=== PATIENT | female | born 1980 | race Two or more races ===

== ENCOUNTER 2018-06-29 13:17 | Emergency (ER) | payer SELFPAY ==
[~2018-06-29] VITALS: Ht 167.6 cm; Wt 90.0 kg
--- NOTE | 2018-06-29 14:28 | NUR ---
LUNCH RN: LAB AT BEDSIDE FOR COLLECTION
--- NOTE | 2018-06-29 14:46 | NUR ---
LUNCH RN: RAMYA BORDEN UA COLLECTED AND SENT TO LAB WITH PT PERMISSION. AWAITING TESTING AND RESULTS AT THIS TIME.
[2018-06-29 14:48] LABS: MICROSCOPIC NOT IND
[2018-06-29 14:50] LABS: CULTURE INDICATED? NO
[2018-06-29 14:59] LABS: BASOPHILS # (AUTO) 0.01 x10^3/uL (0-0.1); BASOPHILS % (AUTO) 0 % (0-1); EOSINOPHILS # (AUTO) 0.08 x10^3/uL (0-0.4); EOSINOPHILS % (AUTO) 1 % (1-7); LYMPHOCYTES # (AUTO) 2.16 x10^3/uL (1-3.4); LYMPHOCYTES % (AUTO) 24 % (22-44); MD NO; MEAN CORPUSCULAR HEMOGLOBIN 21.7 pg (27.0-34.8); MEAN CORPUSCULAR HGB CONC 31.9 g/dL (32.4-35.8); MEAN CORPUSCULAR VOLUME 68.1 fL (80-100); MONOCYTES # (AUTO) 0.71 x10^3/uL (0.2-0.8); MONOCYTES % (AUTO) 8 % (2-9); NEUTROPHILS # (AUTO) 6.23 x10^3/uL (1.8-6.8); NEUTROPHILS % (AUTO) 68 % (42-75); PLATELET COUNT 441 x10^3/uL (130-400); RED BLOOD COUNT 4.46 x10^6/uL (3.82-5.3); RED CELL DISTRIBUTION WIDTH 20.6 % (9.6-15.2)
[2018-06-29] MEDS ORDERED: ACETAMINOPHEN 325 MG TABLET ONE (16:11)
[2018-06-29 16:14] VITALS: BP 114/63
--- NOTE | 2018-06-29 16:15 | NUR ---
DR ORTIZ AT BEDSIDE. ADDITIONAL LABS ORDERED. PT MED NOTED FOR ABD CRAMPING 11/11. RESULTED LABS AND US REVIEWED WITH PT. PT FRIEND AT BEDSIDE FOR INTERPRETING PER PT REQUEST
[2018-06-29] MEDS ORDERED: ACETAMINOPHEN 325 MG TABLET PO ONE (16:30)
--- NOTE | 2018-06-29 17:16 | NUR ---
Patient/Caregiver given discharge instructions and they have confirmed that they understand the instructions. Patient ambulatory with steady gait.
== END 2018-06-29 17:17 | disposition home or self-care (01) ==
LOC: ED 16:45
DX: O20.0 Threatened abortion (principal); Z3A.10 10 weeks gestation of pregnancy
CPT/HCPCS: 36415; 76801; 81003; 84702; 85025; 86901; 99284

== ENCOUNTER 2018-07-02 11:55 | Emergency (ER) | payer SELFPAY ==
[~2018-07-02] VITALS: Ht 160 cm; Wt 91.0 kg
--- NOTE | 2018-07-02 13:17 | NUR ---
PT TO ROOM FROM LOBBY
--- NOTE | 2018-07-02 14:00 | NUR ---
pt presents to ED requesting repeat HCG as she was seen 3 days ago at this facility for threatened miscarriage. pt reports she is 10 weeks and had increased vag bleeding yesterday, pt reports today that vaginal bleeding is scant. pt reports mild uterine cramping but denies pain elsewhere. pt reports dizziness x 3 days, MAGDALENA Colvin notified. neuro intact, all monitors in place, pt is nsr on quality assurance monitor chassis with no ectopy. per MAGDALENA, no EKG indicated at this time. repeat HCG reviewed by MAGDALENA Colvin, pt updated with results and POC by MAGDALENA. at bedside. Pt placed on pelvic bed, pelvic setup complete. warm blanket provided. awaiting pelvic exam by provider at this time.
--- NOTE | 2018-07-02 14:13 | NUR ---
pt in US at this time.
--- NOTE | 2018-07-02 14:30 | NUR ---
pt back from US, awaiting pelvic and dispo.
[2018-07-02 15:24] VITALS: BP 138/72
--- NOTE | 2018-07-02 15:30 | NUR ---
late entry for 1530: pt refuses official court interpreter, prefers to use to interpret. refusal form signed by pt.
--- NOTE | 2018-07-02 15:36 | NUR ---
Pt and [facility], with instructions to follow up with OBGYN on friday. 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 pt and demonstrate understanding of RN/PA education/dc instructions. pt a&o, resps even and unlabored, nsr on gambling monitor. pt consents to spiritual care consult dc follow up, order placed. pt provided with miscarriage care pack which includes resources, candle and baby blanket. pt requesting note to return to work tomorrow, MAGDALENA ok'd, note provided. pt amb to dc with steady gait, accompanied by . arnaldo at dc.
== END 2018-07-02 15:30 | disposition home or self-care (01) ==
LOC: ED 13:16
DX: O03.4 Incomplete spontaneous abortion without complication (principal); Z90.89 Acquired absence of other organs; Z3A.00 Weeks of gestation of pregnancy not specified
CPT/HCPCS: 36415; 76830; 84702; 99284

== ENCOUNTER 2018-07-07 13:31 | Emergency (ER) | payer SELFPAY ==
[~2018-07-07] VITALS: Ht 157.5 cm; Wt 90.0 kg
[2018-07-07 14:45] LABS: ALBUMIN 3.5 g/dL (3.4-5.0); ANION GAP 6 mmol/L (5-15); CALCIUM 8.4 mg/dL (8.5-10.1); CHLORIDE 111 mmol/L (98-107)
[2018-07-07 14:52] LABS: ALANINE AMINOTRANSFERASE 25 U/L (12-78); ALKALINE PHOSPHATASE 90 U/L (45-117); BILIRUBIN,TOTAL 0.4 mg/dL (0.2-1.0); CREATININE 0.72 mg/dL (0.55-1.02); TOTAL PROTEIN 7.2 g/dL (6.4-8.2)
--- NOTE | 2018-07-07 18:23 | NUR ---
PT AMBULATED STEADILY TO ROOM WITH RN FROM [facility]. NAD NOTED. PELVIC GURNEY/CART READY
[2018-07-07 18:34] VITALS: BP 126/76
[2018-07-07] MEDS ORDERED: IBUPROFEN 600 MG TABLET ONE (18:42)
[2018-07-07] MEDS ORDERED: PROCHLORPERAZINE 5 MG/ML, 2ML ONE (18:42)
[2018-07-07 18:56] LABS: BASOPHILS # (AUTO) 0.16 x10^3/uL (0-0.1); BASOPHILS % (AUTO) 3 % (0-1); EOSINOPHILS # (AUTO) 0.13 x10^3/uL (0-0.4); EOSINOPHILS % (AUTO) 2 % (1-7); LYMPHOCYTES # (AUTO) 1.68 x10^3/uL (1-3.4); LYMPHOCYTES % (AUTO) 27 % (22-44); MD NO; MEAN CORPUSCULAR HGB CONC 32.3 g/dL (32.4-35.8); MEAN CORPUSCULAR VOLUME 68.1 fL (80-100); MEAN PLATELET VOLUME 8.5 fL (7.4-10.4); MONOCYTES # (AUTO) 0.49 x10^3/uL (0.2-0.8); MONOCYTES % (AUTO) 8 % (2-9); NEUTROPHILS # (AUTO) 3.84 x10^3/uL (1.8-6.8); NEUTROPHILS % (AUTO) 61 % (42-75); PLATELET COUNT 443 x10^3/uL (130-400); RED BLOOD COUNT 3.88 x10^6/uL (3.82-5.3)
[2018-07-07] MEDS ORDERED: PROCHLORPERAZINE 5 MG/ML, 2ML IM ONE (19:00)
[2018-07-07] MEDS ORDERED: IBUPROFEN 600 MG TABLET PO ONE (19:00)
== END 2018-07-07 19:59 | disposition home or self-care (01) ==
LOC: ED 19:18
DX: O03.9 Complete or unspecified spontaneous abortion without complication (principal); G43.701 Chronic migraine without aura, not intractable, with status migrainosus; D50.0 Iron deficiency anemia secondary to blood loss (chronic)
CPT/HCPCS: 36415; 76830; 80053; 84702; 85025; 86901; 96372; 99284; J0780